=== PATIENT | female | born 1985 | race African-American/Black ===

== ENCOUNTER 2016-12-06 12:24 | Emergency (ER) | payer OTHER ==
[2016-12-06 14:09] LABS: BASOPHILS 0.2 %; BASOPHILS ABSOLUTE 0.01 10/3/uL (0.0-0.16); EOSINOPHILS 1.5 %; EOSINOPHILS ABSOLUTE 0.07 10/3/uL (0.0-0.53); ER CBC TAT 0 Hrs 05 Mins; HEMATOCRIT 33.4 % (36.0-48.0); HEMOGLOBIN 11.3 g/dL (12.0-16.0); LYMPHOCYTES 52.9 %; MEAN CORPUS HGB CONC 33.8 g/dL (32.0-36.0); MEAN CORPUSCULAR HEMOGLOB 27.7 pg (26.0-34.0); MEAN CORPUSCULAR VOLUME 81.9 fL (80-100); MEAN PLATELET VOLUME 9.9 fL (9.2-13.0); MONOCYTES 8.5 %; NEUTROPHILS 36.9 %; NEUTROPHILS ABSOLUTE 1.75 10/3/uL (2.02-8.40); PLATELET COUNT 234 10/3/uL (150-400); RBC DISTRIBUTION WIDTH 14.4 % (12.0-16.0); RED CELL COUNT 4.08 10/6/uL (4.0-5.6); WHITE BLOOD CELLS 4.7 10/3/uL (4.5-10.5)
[2016-12-06 14:10] LABS: MANUAL DIFF NO %
[2016-12-06 14:24] LABS: BUN (BLOOD UREA NITROGEN) 9 MG/DL (6-23); CALCIUM, SERUM 8.9 MG/DL (8.5-10.4); CHLORIDE, SERUM 106 MMOL/L (96-112); CO2 (CARBON DIOXIDE) 24 MMOL/L (24-34); CREATININE 0.66 MG/DL (0.55-1.02); GFR AFRICAN AMERICAN 136 ML/MIN (>=60); GFR NON AFRICAN AMERICAN 118 ML/MIN (>=60); GLUCOSE, SERUM 91 MG/DL (60-99); POTASSIUM, SERUM 3.3 MMOL/L (3.5-5.3); SODIUM, SERUM 140 MMOL/L (135-148)
[2016-12-06 15:29] LABS: TROPONIN I <0.02 NG/ML (<0.05)
== END 2016-12-06 16:35 | disposition home or self-care (01) ==
LOC: ER 12:24
PROVIDERS: Nurse Practitioner Acute Care
DX: J40 Bronchitis, not specified as acute or chronic (principal); E87.6 Hypokalemia
CPT/HCPCS: 71020; 80048; 84484; 85025; 93005; 94640; 96372; 99284; A9270-GY; J2930